=== PATIENT | male | born 1970 | race Caucasian/White ===

== ENCOUNTER 2023-02-06 11:43 | Day surgery (SDC) | payer BC ==
[2023-02-06] MEDS ORDERED: Sodium Chloride 0.9% 1,000 ML IV SCH (12:30)
[2023-02-06] MEDS ORDERED: Sodium Chloride 0.9% 10 ML Syringe FLUSH PRN (12:30)
[2023-02-06] MEDS ORDERED: Midazolam 1 MG/ML 2 ML SDV ONE (12:54)
[2023-02-06] MEDS ORDERED: Propofol 200 MG/20 ML SDV ONE (12:54)
[2023-02-06 14:12] VITALS: BP 161/95; PULSE 96
== END 2023-02-06 14:40 | disposition home or self-care (01) ==
LOC: KA.SDS 11:43
PROVIDERS: ATTEND Family Medicine
DX: Z12.11 Encounter for screening for malignant neoplasm of colon (principal); K57.30 Diverticulosis of large intestine without perforation or abscess without bleeding; K64.8 Other hemorrhoids; I10 Essential (primary) hypertension; E78.2 Mixed hyperlipidemia; E78.5 Hyperlipidemia, unspecified; F32.A Depression, unspecified; E11.9 Type 2 diabetes mellitus without complications; E66.9 Obesity, unspecified; K21.9 Gastro-esophageal reflux disease without esophagitis; F17.220 Nicotine dependence, chewing tobacco, uncomplicated; Z79.899 Other long term (current) drug therapy; Z79.4 Long term (current) use of insulin; Z88.5 Allergy status to narcotic agent; Z98.890 Other specified postprocedural states; Z90.49 Acquired absence of other specified parts of digestive tract; Z68.30 Body mass index [BMI] 30.0-30.9, adult
CPT/HCPCS: 82947; J2250; J2704; J7030

== ENCOUNTER 2023-10-25 17:54 | Emergency (ER) | payer BC ==
[2023-10-25 18:33] LABS: BASOPHILS ABSOLUTE AUTO 0.04 10^3/uL (0.00-0.10); BASOPHILS PERCENT AUTO 0.8 % (0.0-1.0); EOSINOPHILS ABSOLUTE AUTO 0.18 10^3/uL (0.10-0.30); EOSINOPHILS PERCENT AUTO 3.6 % (1.0-3.0); HEMATOCRIT 32.1 % (40.0-52.0); HEMOGLOBIN 10.8 g/dL (13.0-17.0); IMMATURE GRAN ABSOLUTE AUTO 0.01 10^3/uL (0.00-0.50); IMMATURE GRAN PERCENT AUTO 0.2 % (0.0-5.0); LYMPHOCYTES ABSOLUTE AUTO 1.71 10^3/uL (1.00-4.00); MEAN CORPUSCULAR HEMOGLOBIN 33.4 pg (27.0-31.0); MEAN CORPUSCULAR HGB CONC 33.6 g/dL (32.0-36.0); MEAN CORPUSCULAR VOLUME 99.4 fL (82.0-92.0); MONOCYTES ABSOLUTE AUTO 0.48 10^3/uL (0.10-0.80); MONOCYTES PERCENT AUTO 9.5 % (2.0-8.0); NEUTROPHILS ABSOLUTE AUTO 2.61 10^3/uL (2.50-7.00); NEUTROPHILS PERCENT AUTO 51.9 % (50.0-70.0); PLATELET COUNT,PLT 202 10^3/uL (150-400); RED BLOOD CELL COUNT 3.23 10^6/uL (4.50-6.00); RED CELL DISTRIBUTION WIDTH 13.8 % (11.5-14.5); WHITE BLOOD CELL COUNT,WBC 5.03 10^3/uL (5.00-10.00)
[2023-10-25 18:39] VITALS: BP 120/87; PULSE 67
[2023-10-25 18:55] LABS: ALBUMIN 3.78 g/dL (3.40-5.00); BILIRUBIN TOTAL 0.4 mg/dL (0.2-1.0); CARBON DIOXIDE,CO2 26.9 mmol/L (21.0-32.0); CREATININE 2.84 mg/dL (0.51-1.17); EST CRCL DRUG DOSING (CG) 30.77 mL/min; POTASSIUM,K 3.9 mmol/L (3.5-5.1); PROTEIN TOTAL,TP 7.2 g/dL (6.4-8.2)
[2023-10-25] MEDS: Sodium Chloride 0.9% 10 ML Syringe FLUSH PRN (19:15)
[2023-10-25] MEDS: Sodium Chloride 0.9% 1,000 ML IV ONE (19:23)
== END 2023-10-25 20:42 | disposition home or self-care (01) ==
LOC: KA.ED 17:54
DX: I95.9 Hypotension, unspecified (principal); E86.1 Hypovolemia; E86.0 Dehydration; I10 Essential (primary) hypertension; E78.00 Pure hypercholesterolemia, unspecified; K21.9 Gastro-esophageal reflux disease without esophagitis; E11.9 Type 2 diabetes mellitus without complications; Z79.899 Other long term (current) drug therapy; Z88.5 Allergy status to narcotic agent
CPT/HCPCS: 36415; 70450; 71046; 72125; 80053; 85025; 93005; 93010; 96360; 99284; 99285-25; J3490; J7030